=== PATIENT | male | born 1995 | race Caucasian/White ===

== ENCOUNTER 2019-10-18 19:42 | Emergency (ER) | payer MEDICAID ==
[~2019-10-18] VITALS: Ht 175.3 cm; Wt 81.0 kg
[2019-10-19] MEDS ORDERED: KETOROLAC 60MG/2ML VIAL IM STA (04:02)
[2019-10-19] MEDS ORDERED: VISCOUS LIDOCAINE 2% 15 ML UDC PO ONE (04:15)
[2019-10-19] MEDS ORDERED: MAGNESIUM/ALUMINUM HYDROXIDE/SIMETHICONE 30ML UDC PO ONE (04:15)
[2019-10-19 05:23] VITALS: BP 120/78
== END 2019-10-19 05:23 | disposition home or self-care (01) ==
LOC: ER 19:42
DX: R00.2 Palpitations (principal); F17.200 Nicotine dependence, unspecified, uncomplicated
CPT/HCPCS: 93005; 99283